=== PATIENT | female | born 1985 | race Hispanic/Latino ===

== ENCOUNTER → 2021-09-08 11:07 | Outpatient (CLI) | payer OTHER, SELFPAY ==
[2021-09-08 13:59] LABS: Add Manual Diff / Slide Review NO; Basophils Absolute Auto 0 /uL (0-100); Basophils Percent Auto 0.1 % (0-2); Eosinophils Absolute Auto 100 /uL (0-450); Eosinophils Percent Auto 0.6 % (2-4); Hematocrit 36.9 % (36-46); Hemoglobin 12.6 g/dL (12.0-16.0); Lymphocytes Absolute Auto 1500 /uL (1100-4500); Mean Corpuscular HGB Conc 34.1 % (30-36); Mean Corpuscular Hemoglobin 29.4 PG (26-34); Mean Corpuscular Volume 86.3 fL (80-100); Monocytes Absolute Auto 600 /uL (0-900); Monocytes Percent Auto 6.3 % (3-14); Neutrophils Absolute Auto 7000 /uL (1500-7000); Platelet Count 337 X10^3/uL (150-400); Red Blood Cell Count 4.27 X10^6/uL (4.0-5.2); Red Cell Distribution Width 12.7 % (11.6-14.8); White Blood Cell Count 9.1 X10^3/uL (4.5-11.0)
[2021-09-08 14:09] LABS: Appearance Urine UA CLEAR; Bilirubin Urine UA NEGATIVE (NEGATIVE); Color Urine UA YELLOW; Glucose Urine UA NEGATIVE (Negative); Ketones Urine UA NEGATIVE (NEGATIVE); Leukocyte Esterase Urine UA TRACE (NEGATIVE); Nitrite Urine UA NEGATIVE (Negative); Occult Blood Urine UA 2+ (Negative); Protein Urine UA NEGATIVE (Negative); Specific Gravity Urine UA <=1.005 (1.000-1.035); Urobilinogen Urine UA 0.2 E.U./dL (0.2)
[2021-09-08 14:14] LABS: Alanine Aminotransferase 12 IU/L (<35); Albumin 4.6 g/dL (3.5-5.0); Albumin Globulin Ratio 1.2 (1.0-2.8); Alkaline Phosphatase 53 U/L (38-126); Aspartate Aminotransferase 20 IU/L (14-36); BUN Creatinine Ratio 19.1 (6-22); Bilirubin Total 0.3 mg/dL (0.2-1.3); Blood Urea Nitrogen 9 mg/dL (7-17); Calcium 9.2 mg/dL (8.4-10.2); Carbon Dioxide 23 mmol/L (22-32); Chloride 102 mmol/L (98-107); Estimated Glomerular Filt Rate > 60.0 mL/min (>60); Globulin 3.8 g/dL (1.7-4.1); Glucose 104 mg/dL (70-100); HEMOLYSIS < 15 (0-50); Lactate Dehydrogenase 351 U/L (313-618); Potassium 3.8 mmol/L (3.4-5.1); Sodium 133 mmol/L (137-145); Total Protein 8.4 g/dL (6.3-8.2); Uric Acid 2.4 mg/dL (2.5-6.2)
[2021-09-08 14:42] LABS: Bacteria Urine Few (2-10); Culture Indicated Urine Specimen Cultured; RBC Urine 1-5/HPF (0-5/HPF); Squamous Epithelial Cell Urine 1-5 /HPF (0-5/HPF); WBC Urine 1-5/HPF (0-5/HPF)
[2021-09-08 15:29] LABS: Creatinine Urine Random 27.1 mg/dL; Protein (Total) Urine Random 9 mg/dL (0-12); Protein Creatinine Ratio Urine 0.33 GRAM/24H
[2021-09-08 15:55] LABS: Hepatitis B Surface Antigen NEGATIVE s/c (NEGATIVE); Rubella Antibody IgG 25.7 IU/mL (>15)
[2021-09-08 16:09] LABS: HIV 1 & 2 Ab/Ag 4th Gen Combo NEGATIVE (NEGATIVE); Hep C Virus Ab w/Reflex Quant NEGATIVE s/c (NEGATIVE)
[2021-09-09 04:08] LABS: RPR Screen Non Reactive (Non Reactive)
[2021-09-09 09:34] LABS: Varicella IgG Antibody <135 index (Immune >165)
== END ==
PROVIDERS: Referring Provider Obstetrics & Gynecology; Visit Provider Obstetrics & Gynecology
DX: Z34.00 Encounter for supervision of normal first pregnancy, unspecified trimester (principal)
CPT/HCPCS: 36415; 80053; 80055; 81003; 81015; 82570; 83615; 84156; 84550; 86787; 86803; 86850; 86900; 86901; 87086; 87389

== ENCOUNTER → 2021-09-25 10:18 | Outpatient (CLI) | payer OTHER, SELFPAY ==
[2021-09-25 10:34] LABS: Specimen Label Y
== END ==
PROVIDERS: Referring Provider Obstetrics & Gynecology; Visit Provider Obstetrics & Gynecology
DX: O09.521 Supervision of elderly multigravida, first trimester (principal); Z36.0 Encounter for antenatal screening for chromosomal anomalies
CPT/HCPCS: 36415

== ENCOUNTER → 2021-10-23 10:37 | Outpatient (CLI) | payer OTHER, SELFPAY ==
--- NOTE | 2021-10-23 10:39 | DI.US.S_ITS ---
PROCEDURE: US OB >= 14 WEEKS FETUS INDICATIONS: ANATOMY SCAN OUTSIDE/PRIOR DATING DATA: Last menstrual period (LMP): Not known LMP-based estimated date of delivery (MELODIE): Not applicable First dating scan (date and location): August 11, 2021 Estimated date of delivery (MELODIE) from first dating scan: March 08, 2022 The calculations are made using the ultrasound MELODIE of March 08, 2022 TECHNIQUE: Real-time scanning was performed of the fetus, with image documentation and biometric measurements. Endovaginal scanning: Performed COMPARISON: [facility], US, US OB <= 14 WEEKS FETUS, 08/11/2021, 14:53. FINDINGS: General: A single living intrauterine gestation is present. Presentation: Variable Placenta: Placental position is posterior, without previa. Amniotic fluid index: 18.9 cm, normal range is 5-24 cm. heart rate: 144 beats per minute. Maternal cervical canal: Closed and 3.7 cm long. Normal lower limit is 2.5 cm. biometrics: Biparietal diameter: 21 weeks 4 days Head circumference: 20 weeks 6 days Abdominal circumference: 21 weeks 0 days Femur length: 20 weeks 0 days Expected gestational age by initial ultrasound: 20 weeks 4 days Composite gestational age from present scan: 20 weeks 6 days Estimated weight and percentile: 366 grams; 48th percentile Anatomic survey: Neuro: Ventricles are non-dilated at less than 10 mm. Cisterna magna is normal at 3-11 mm. Cerebellum is normal in size and morphology. Nuchal skin fold: Normal at less than 6 mm between 14-21 weeks gestational age. Face: Nose and lips, facial profile are normal. Spine: No evidence for spina bifida. Heart: 4-chambered heart is present, with normal ventricular outflow tracts. Diaphragm: Diaphragm is intact. Stomach: Left-sided stomach is present. Kidneys: No hydronephrosis. Normal is less than 5 mm in 2nd trimester, less than 7 mm in 3rd trimester. Cord: 3-vessel cord has orthotopic insertion. Bladder: Normal in size. Extremities: All 4 extremities identified. IMPRESSION: 1. Single living intrauterine with appropriate interval growth. 2. Normal anatomic survey. Dictated by: Whitney Blanchard MD, PhD on 10/23/2021 at 13:24 Approved by: Whitney Blanchard MD, PhD on 10/23/2021 at 13:27
== END ==
LOC: US 10:39
PROVIDERS: Referring Provider Obstetrics & Gynecology; Visit Provider Obstetrics & Gynecology
DX: Z34.82 Encounter for supervision of other normal pregnancy, second trimester (principal); Z3A.20 20 weeks gestation of pregnancy
CPT/HCPCS: 76811

== ENCOUNTER → 2021-12-11 11:34 | Outpatient (CLI) | payer OTHER, SELFPAY ==
[2021-12-11 13:41] LABS: Hematocrit 29.5 % (36-46); Hemoglobin 10.5 g/dL (12.0-16.0)
[2021-12-11 14:00] LABS: GTT (PREG) 1 Hour PP 50gm Dose 138 mg/dL (76-139)
== END ==
PROVIDERS: Referring Provider Obstetrics & Gynecology; Visit Provider Obstetrics & Gynecology
DX: Z34.82 Encounter for supervision of other normal pregnancy, second trimester (principal); Z3A.26 26 weeks gestation of pregnancy
CPT/HCPCS: 36415; 82950; 85014; 85018

== ENCOUNTER → 2022-02-10 11:16 | Outpatient (CLI) | payer OTHER, SELFPAY ==
[2022-02-11 13:32] LABS: Strep Grp B PCR NEG for Grp B Strep
== END ==
PROVIDERS: Visit Provider Obstetrics & Gynecology
DX: Z34.83 Encounter for supervision of other normal pregnancy, third trimester (principal)
CPT/HCPCS: 87653

== ENCOUNTER 2022-02-16 07:26 | Inpatient (IN) | payer OTHER, SELFPAY ==
--- NOTE | 2022-02-16 | PATH_ITS ---
[facility] Accession Number: [id number] . 01 Material submitted: . body - PARATUBAL CYSTS . 01 Clinical history: . OBS OF LABOR . 01 Diagnosis: Paratubal Cysts, Excision: Benign paratubal cysts. MRV 02/18/2022 1036 Local . 01 Electronically signed: . Dannielle Oropeza MD, Pathologist NPI- [id number] . 01 Gross description: . Received in formalin labeled with the patient's name and paratubal cysts consist of two intact pedunculated cystic structures. The first measures 1.1 x 0.8 x 0.6 cm and the margin is inked blue. The second measures 1.3 x 0.7 x 0.5 and the margin is inked green. Both fragments are bisected to reveal thin smooth-walled cystic structures filled with cordoba serous fluid. The specimens are submitted entirely in cassette A1. ([id number]) /MRV 02/17/2022 1552 Local . 01 Pathologist provided ICD-10: N83.8 . 01 CPT . 526298 Specimen Comment: A courtesy copy of this report has been sent to [facility] Performed at: 01 [facility] [address] [place] [address] [address] [facility], [place], [place] [id number] MD Sascha Swann MD Phone: [phone]
--- NOTE | 2022-02-16 09:07 | P.HPOB_ITS ---
OB HPI Date/Time Date of admission: 02/16/22 Date Patient Seen: 02/16/22 Time Patient Seen: 08:05 History of Present Condition Chief complaint: obs of labor : 2 Para: 0 Estimated Date of Delivery: 03/08/22 Estimated Gestational Age (weeks): 37 Narrative: Yareli Sparrow is a 36 year old female female who presents at 37 weeks with SROM. Baby was breech presentation on US last week. She had declined scheduling a version and she desired to try some exercise at home to see if the baby would turn to vertex with exercises. She reports feeling some cramping on the with the hospital, resolved. Not feeling any contractions. No bleeding. Feeling good movement. has been uncomplicated. She is advanced maternal age. Cell free DNA showed a fetus low risk for aneuploidy is, she did not find out the gender. History of Present care: good care Dating criteria: LMP confirmed by 1st trimester US Ultrasounds: normal mid trimester US Medical complications: none Preadmission Labs Blood type: B (+) positive -: Antibody screen: negative, GBS status: negative, HBsAG: negative, HSV 1: negative, HSV 2: negative and RPR/VDLR: negative -: Chlamydia screen: not detected and Gonorrhea screen: not detected -: Rubella: immune and Varicella: not immune HCAB: negative PAP: Normal Cell-free DNA: low risk 1 hr GTT: 138 Prior (ies) History: Spontaneous Ab at 6 weeks Evaluation Evaluation Baseline heart rate: 140 Variability: Moderate (11-25) monitor accelerations: Present Monitor Decelerations: Absent Category of Tracing: Reactive Status: Category l Comments: Leakage of fluid seen her vagina, grossly ruptured membranes. Cervix not examined at this time since she is not having contractions. Bedside ultrasound reveals francisca breech presentation with vertex in the mid upper abdomen, spine anterior to patient's right. 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 water heater temp set < 120 deg: Yes (will check) working smoke detector in home: Yes fire extinguisher in home: Yes carbon monox detector in home: Yes firearms in home: Yes firearms unloaded and locked: Yes do you feel safe at home: Yes Smoking Status: Former smoker (quit 6 years) second hand exposure: No alcohol intake: former (stopped at ) substance use type: does not use during the past year weight has: remained stable well-balanced diet: daily or most days (gluten intolerant) daily servings fruits/ve-4 caffeine: Yes (200mg) Type(s) of exercise: walking frequency: 3-4 times per week Meds Home Medications and Allergies Home Medications Medication Instructions Recorded Confirmed Type prenat.vits,fabi,pxj-djgl-jdkqt 1 tab PO DAILY 07/31/21 02/10/22 History omeprazole 40 mg capsule,delayed 40 mg PO DAILY Heartburn #30 caps 12/11/21 02/10/22 Rx release ferrous sulfate 142 mg (45 mg 142 mg PO DAILY 01/13/22 02/10/22 History iron) tablet,extended release (Slow Fe) Allergies Allergy/AdvReac Type Severity Reaction Status Date / Time No Known Drug Allergies Allergy Unverified 02/10/22 10:31 OB Exam Narrative Exam Narrative: Vital signs Afebrile, BP 115/72, pulse 96 HENMT Head: normal to inspection and normocephalic Resp Effort & Inspection: normal respiratory effort Cardio Rate: regular rate Extremities Lower extremity: Yes normal to inspection Presentation: francisca breech Estimated Weight (lbs): 6 Amniotic Fluid: clear Objective Labs Result Diagrams: 02/16/22 09:58 Assessment and Plan Assessment and Plan Assessment and Plan narrative: 36 yo female @ 37 weeks 1 day EGA, SROM, francisca breech presentation. GBS negative She inquired regarding doing possible external cephalic version, though she would still be hesitant due to hearing it is uncomfortable. On ultrasound MADHAV 10. I discussed typically less success with attempting ECV with ruptured membranes or labor. She is not currently anabell. MADHAV is 10, discussed measuring fluid volume where reasonable to try, however measuring some in her pockets, adding up to 10 with 1 better pocket, I do not see a lot of fluid in general around the baby's body. Discussed certainly could attempt but feels less likely to be successful. Discussed possibility of urgent Csection with an attempted ECV, rare but occasionally urgent needed due to a bradycardia. Could attempt the ECV after spinal anesthesia is placed, since potentially increase risk for urgent due to lower amniotic fluid, and then she would having anesthesia in place rather than need to undergo general anesthesia for an urgent . I did discuss after a , different in attempting a labor in the future with an incision on the uterus, some increased risk with laboring with risk of uterine rupture.. Discussed with a future it would be a decision whether have a repeat versus possible option of attempting labor depending on the uterine incision at this C- section. I discussed this so they can have this information regarding deciding whether she did want to attempt an external cephalic version. I discussed if the version failed or if they opted not to try a version, due to persistent joshua k breech presentation, safer to deliver a breech baby by . I left patient and her alone to discuss and they decided on proceeding with C- section for delivery, declies attempted ECV. She was admitted. Admit labs ordered including COVID screen. I reviewed primary section, discussed small risk of bleeding, infection, injury to internal organs including injury to the urinary system including bladder and ureters, bowel, and risk of injury to the baby. Verbal and written consent obtained. She was already added onto the OR schedule and will proceed when her COVID screen and labs returns.
[2022-02-16] MEDS: LACTATED RINGERS 1,000 ML 100 ML IV ×2 (09:45→13:30)
[2022-02-16 10:01] LABS: Add Manual Diff / Slide Review NO; Basophils Absolute Auto 0 /uL (0-100); Basophils Percent Auto 0.2 % (0-2); Eosinophils Absolute Auto 0 /uL (0-450); Eosinophils Percent Auto 0.2 % (2-4); Hematocrit 33.4 % (36-46); Hemoglobin 11.5 g/dL (12.0-16.0); Lymphocytes Absolute Auto 1700 /uL (1100-4500); Lymphocytes Percent Auto 12.1 % (25-40); Mean Corpuscular HGB Conc 34.5 % (30-36); Mean Corpuscular Hemoglobin 29.9 PG (26-34); Mean Corpuscular Volume 86.8 fL (80-100); Monocytes Absolute Auto 900 /uL (0-900); Monocytes Percent Auto 6.4 % (3-14); Neutrophils Absolute Auto 11100 /uL (1500-7000); Neutrophils Percent Auto 81.1 % (50-75); Platelet Count 275 X10^3/uL (150-400); Red Blood Cell Count 3.84 X10^6/uL (4.0-5.2); Red Cell Distribution Width 14.1 % (11.6-14.8); White Blood Cell Count 13.7 X10^3/uL (4.5-11.0)
[2022-02-16 10:14] VITALS: BP 108/59
[2022-02-16 10:31] LABS: COVID19 -Nasal RAPID Negative (Negative)
--- NOTE | 2022-02-16 10:55 | P.OP_ITS ---
Operative Date/Time/Diagnoses Date of procedure: 02/16/22 Time of procedure: 10:00 Pre-op diagnosis: [id number] EGA , francisca breech presentation, spontaneous rupture membranes Post-op diagnosis: same Procedure & Clinicians Procedure: Primary lower transverse section. Removal of bilateral small paratubal cysts Same procedure as scheduled: Yes Indications: 36 yo at 37 weeks with SROM with known breech presentation. On discovering breech presentation last week, she declined being scheduled at that time for external cephalic version, was deciding and desired to attempt some different exercises at home to see if the baby would turn. This morning at 0400 she had spontaneous rupture membranes And the baby is in the persistent breech presentation. She inquired regarding external cephalic version. I discussed much lower success rate with spontaneous rupture membranes. On MADHAV today, it was 10. Discussed however subjectively fluid looked low around the babies body. Discussed that I could give an attempt at an ECV, discussed option could be after the spinal anesthesia, since she did not want to risk possibility of urgent under general anesthesia. After consideration, she declined attempt at an ECV and desired to proceed with the primary section at this time for breech presentation. Surgeon: Marina Hammond Counter Professional: Jenelle Hayes Anesthesia Type: Spinal Operative Notes Findings: Baby was in the francisca breech presentation. A baby boy was delivered, weight and Apgars were pending. The baby did become vigorous after few seconds on the maternal abdomen, with wiping the baby. Normal uterus and bilateral ovaries. Fallopian tubes were both normal in appearance with bilateral small paratubal cysts. Closure Type: primary Specimen(s): other ( Bilateral paratubal cysts sent as one specimen; cord blood to lab) Applied: catheter (Whitt) Estimated Blood Loss (mL): 500 Blood products transfused: none Procedure in detail: IV fluids 1800 mL Urine output: 350 mL Description of procedure: She was transferred from the center to the operating room. After an adequate level of spinal anesthesia was obtained, she was placed in the supine position, Whitt catheter was placed and she was prepped and draped in routine sterile fashion. A Pfannenstiel skin incision was made in the lower abdomen and carried down to the level of the fascia. The fascia was incised in the midline and was bluntly extended transversely. The superior and inferior edges of the fascia were elevated and dissected off the rectus muscles with sharp and blunt dissection. The muscles were bluntly split in the midline. The parietal peritoneum was elevated, incised and extended bluntly. The bladder blade was placed. The visceral peritoneum was elevated off the lower uterus, incised and the bladder flap was bluntly created. The bladder blade retractor was placed. A transverse incision was made in the lower uterus and the incision was extended transversely with blunt dissection. Clear fluid was noted. The baby's buttocks was elevated to the uterine incision and each leg was sequentially delivered by flexing the leg at the hip and delivering through the incision. The baby was then turned spine anterior and gradually delivered to the level the chest. The baby was then turned left shoulder anterior and the left arm was delivered with cat's paw maneuver, with gentle pressure on the humerus. The baby was then turned right arm anterior and with cat's paw maneuver, the right arm was delivered without difficulty as well. The baby was then placed back to spine anterior and the body was elevated. The head was then delivered by placing a finger in the mouth and gently flexing the head through the uterine incision and a baby boy was fully delivered. The was not immediately vigorous, but after wiping the baby gently with a towel, within a few seconds he began to cry spontaneously. The drape was dropped to a clear drape and the baby was shown to the parents. After 1 minute the cord was clamped and cut and the baby was handed off to the baby nurse and respiratory therapy who was present for delivery. Cord blood was obtained a specimen. The placenta was expressed with gentle cord traction and uterine massage. With delivery of the placenta, the uterus was noted to be inverted, an uterine inversion had occurred. The internal uterine fundus was immediately pushed back in position, the uterine inversion corrected. With correction, the placenta was noted to be detached with trailing membranes. Using a ring forceps the membranes were slowly removed. The placenta appeared intact and was handed off as specimen. The uterus was atonic and with massage and IV Pitocin, it firmed up. The uterus was swept clean of adherent clots and membranes. The uterus was already through the abdominal incision after the inversion and was kept out at this time for the uterine closure. The uterine incision was closed in 2 layers with 0 Vicryl, the 1st layer being in running locking continuous fashion and the 2nd layer being in a vertical imbricating type fashion. Hemostasis was noted. The tubes and ovaries were inspected and noted to be normal. There were bilateral small loosely attached paratubal cysts which were removed and sent for pathology. The uterus was placed back into the maternal abdomen. The paracolic gutters were inspected and were free any clot, blood or fluid. The anterior cul-de-sac was inspected and some clot was removed. The uterine incision was re- inspected and good hemostasis was noted. The pelvis was irrigated. Repeat inspection showed continued hemostasis. The abdomen was closed. The parietal peritoneum was closed with a running continuous suture of 2-0 Vicryl. The fascia was closed with 2 sutures of running continuous 0 Vicryl meeting in the midline. The subcutaneous tissue was irrigated. The subcutaneous tissue was reapproximated by reapproximating Otis's fascia with 2-0 Vicryl.The skin was closed with a subcuticular suture of 4 0 Monocryl. Steri-Strips and sterile Aquacel dressing was placed. She tolerated the procedure well and went to the recovery room in stable condition. Complications: none Post-operative Condition: stable Disposition: PACU Plan for aftercare: Transferred to the birthing center for continued postoperative, care.
[2022-02-16] MEDS: CEFAZOLIN 2 GM/100 ML PREMIX 100 ML IV (10:58)
[2022-02-16] MEDS: ACETAMINOPHEN IV 1,000 MG/100 ML VIAL 400 MG IV (11:17)
--- NOTE | 2022-02-16 11:19 | SUR.OPER ---
Supine on padded OR bed, head on pillow, arms secured on padded arm boards at <90 degrees abduction, legs uncrossed, safety belt at thigh, tape over blanket over lower legs.
--- NOTE | 2022-02-16 11:38 | SUR.OPER ---
LIVE BABY BOY TOB 1123. BABY, CORD BLOOD AND PLACENTA TO OB RN.
[2022-02-16 12:22] VITALS: BP 110/64; PULSE 80; RESP 16; TEMP 36.6; O2SAT 100
[2022-02-16 12:27] VITALS: BP 116/72; PULSE 73; RESP 16; O2SAT 98
[2022-02-16 12:50] VITALS: BP 118/77; PULSE 68; RESP 16; TEMP 36.6; O2SAT 100
[2022-02-16 16:55] VITALS: TEMP 36.6
[2022-02-16] MEDS: ACETAMINOPHEN 325 MG TABLET 650 MG PO ×2 (16:55→23:05)
[2022-02-16 18:35] VITALS: TEMP 36.2
[2022-02-16] MEDS: KETOROLAC 30 MG/ML VIAL IV (18:35)
[2022-02-17] MEDS: KETOROLAC 30 MG/ML VIAL IV ×3 (00:21→12:41)
[2022-02-17] MEDS: ACETAMINOPHEN 325 MG TABLET 650 MG PO ×3 (05:15→23:04)
[2022-02-17 06:13] LABS: Add Manual Diff / Slide Review NO; Basophils Absolute Auto 0 /uL (0-100); Basophils Percent Auto 0.3 % (0-2); Eosinophils Absolute Auto 0 /uL (0-450); Eosinophils Percent Auto 0.4 % (2-4); Hematocrit 27.4 % (36-46); Hemoglobin 9.6 g/dL (12.0-16.0); Lymphocytes Absolute Auto 1500 /uL (1100-4500); Lymphocytes Percent Auto 11.7 % (25-40); Mean Corpuscular HGB Conc 35.1 % (30-36); Mean Corpuscular Hemoglobin 30.4 PG (26-34); Mean Corpuscular Volume 86.6 fL (80-100); Monocytes Absolute Auto 1000 /uL (0-900); Monocytes Percent Auto 7.3 % (3-14); Neutrophils Absolute Auto 10600 /uL (1500-7000); Neutrophils Percent Auto 80.3 % (50-75); Platelet Count 256 X10^3/uL (150-400); Red Blood Cell Count 3.16 X10^6/uL (4.0-5.2); White Blood Cell Count 13.1 X10^3/uL (4.5-11.0)
--- NOTE | 2022-02-17 07:56 | P.PNOB_ITS ---
Subjective - OB Subjective Patient comments: pain well controlled, tolerating diet, flatus present (and +small BM) and other ( Voided without difficulty after Whitt removed. Lochia is light.) [place] baby status: doing well and other [place] feeding status: other (baby not latching well, working on , giving pumped milk) Date Patient Seen: 02/17/22 Time Patient Seen: 12:30 Exam Vital Signs (past 8 hours): Oxygen Delivery Method Room Air Afebrile, BP 108/63, pulse 86, respiratory rate 17 Narrative Exam Narrative: General: Well-appearing female in no acute distress Abdomen: Soft, nondistended, expected discomfort near dressing, otherwise abdomen nontender dressing is dry, intact. Fundus firm, U -1, nontender Extremities: Trace pedal edema Objective Labs Result Diagrams: 02/17/22 06:01 Labs: Laboratory Results - last 24 hr 02/16/22 02/16/22 02/16/22 08:39 09:58 09:58 WBC 13.7 H RBC 3.84 L Hgb 11.5 L Hct 33.4 L MCV 86.8 MCH 29.9 MCHC 34.5 RDW 14.1 Plt Count 275 Neut % (Auto) 81.1 H Lymph % (Auto) 12.1 L [place] % (Auto) 6.4 Eos % (Auto) 0.2 L Baso % (Auto) 0.2 Neut # (Auto) 57103 H Lymph # (Auto) 1700 [place] # (Auto) 900 Eos # (Auto) 0 Baso # (Auto) 0 SARS-CoV-2 (PCR) Negative Blood Type B Positive Antibody Screen Negative 02/17/22 06:01 WBC 13.1 H RBC 3.16 L Hgb 9.6 L Hct 27.4 L MCV 86.6 MCH 30.4 MCHC 35.1 RDW 14.0 Plt Count 256 Neut % (Auto) 80.3 H Lymph % (Auto) 11.7 L [place] % (Auto) 7.3 Eos % (Auto) 0.4 L Baso % (Auto) 0.3 Neut # (Auto) 53195 H Lymph # (Auto) 1500 [place] # (Auto) 1000 H Eos # (Auto) 0 Baso # (Auto) 0 SARS-CoV-2 (PCR) Blood Type Antibody Screen Assessment & Plan Plan day: 1 plan OB: routine postop care Comments: Doing well. Working further on today. Time Spent With Patient Time: Total time spent is greater than 50% in coordination of care (as documented) at patient's floor/unit and/or counseling patient: Time with patient: less than 15 minutes
[2022-02-17] MEDS: DOCUSATE 100 MG CAPSULE 200 MG PO (09:00)
[2022-02-17 12:41] VITALS: TEMP 36.6
[2022-02-17] MEDS: IBUPROFEN 600 MG TABLET PO (18:30)
[2022-02-18] MEDS: IBUPROFEN 600 MG TABLET PO ×2 (01:32→08:16)
[2022-02-18] MEDS: ACETAMINOPHEN 325 MG TABLET 650 MG PO (06:02)
[2022-02-18] MEDS: DOCUSATE 100 MG CAPSULE 200 MG PO (08:16)
--- NOTE | 2022-02-18 10:01 | PM.DS.1 ---
History of Present Illness History of Present Illness Chief complaint: Discharge Providers Provider Date of admission: 02/16/22 07:26 Discharge Date: 02/18/22 Primary care physician: Danay Hawthorne MD Consults: 02/16/22 15:45 Consult to Algebra Tutor Routine Comment: Discharge provider: Marina Hammond MD Summary Hospital Course Discharge Diagnosis: 37 week , Spontaneous rupture membranes, delivered Breech presentation Status post primary section Hospital Course: 36 year old female female who presents at 37 weeks with SROM. Baby was known breech presentation. ultrasound confirmed persistent breech presentation. She underwent primary lower section for delivery without difficulty and no maternal complications. See operative report. She had normal course, meeting normal postoperative parameters. The baby was not latching well, not well. On postoperative day 1 in the evening, the baby was noted to have an increased respiratory weight. On evaluation with checks x-ray, the baby was noted to have bilateral pneumothoraces. The baby was stabilized and [facility]. The father the baby went with the baby. Reportedly the baby is stable, after placing chest tubes. The pt is coping well. She is pumping breast milk. She desires discharge today, will stay in [place] until the baby is discharged. Status at Discharge Cognitive/behavioral status at discharge: oriented Functional status at discharge: independent ambulation Overall status at discharge: patient is back to baseline Time Spent with Patient Time spent: Less than 30 minutes Exam Vital Signs (past 8 hours): Oxygen Delivery Method Room Air Narrative Exam Narrative: General: Well-appearing female in no acute distress Abdomen: Soft, nontender, nondistended. Dressing is intact and dry. Fundus firm, nontender Extremities: trace pedal edema Objective Labs Result Diagrams: 02/17/22 06:01 [facility] Medical History (Updated 12/24/21 @ 13:38 by Marina Hammond MD) Gluten intolerance Seasonal allergies Surgical History (Updated 08/18/21 @ 22:34 by Yolanda Castillo) H/O dilation and curettage (~2011) H/O wisdom tooth extraction Family History (Updated 08/18/21 @ 22:34 by Yolanda Castillo) Grandmother Diabetes mellitus Mother Alopecia Father Cancer Social History marital status: unmarried,living together (13 years) number of children: 0 household members: significant other lives independently: Yes housing: house pets and animals: Yes (Cats ) education level: high school 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 water heater temp set < 120 deg: Yes (will check) working smoke detector in home: Yes fire extinguisher in home: Yes carbon monox detector in home: Yes firearms in home: Yes firearms unloaded and locked: Yes do you feel safe at home: Yes Smoking Status: Never smoker second hand exposure: No alcohol intake: former (stopped at ) substance use type: does not use during the past year weight has: remained stable well-balanced diet: daily or most days (gluten intolerant) daily servings fruits/ve-4 caffeine: Yes (200mg) Type(s) of exercise: walking frequency: 3-4 times per week Discharge Assessment & Plan Assessment and Plan Assessment: POD 2 s/p primary section for breech. Plan of Treatment: discharge home. Patient is going to travel to [place] to see the baby and stay there until baby is discharged. She will likely have an incision check there and dressing removal versus returning here in 1-2 weeks for Aquacel removal. Discharge Plan Discharge Plan Patient Disposition: Home Provider Discharge Comment: status post primary C section for breech presentation, spontaneous ruptured membranes Discharge orders & Medications Prescriptions: New acetaminophen 325 mg Tablet 650 mg PO Q6H PRN (Reason: Fever/Mild Pain (1-3)) Qty: 7 0RF docusate sodium 100 mg Capsule 200 mg PO DAILY Qty: 14 0RF ibuprofen 600 mg Tablet 600 mg PO Q6HR PRN (Reason: pain, moderate) Qty: 60 0RF oxycodone 5 mg Tablet 5 mg PO Q4H PRN (Reason: Pain, Moderate (4-6)) Qty: 10 0RF Purelan Cream 1 applic topical PRN PRN (Reason: Post Delivery) Qty: 7 0RF Continued omeprazole 40 mg capsule,delayed release(DR/EC) 40 mg PO DAILY Qty: 30 3RF prenat.vits,fabi,kwe-cdut-fhwxl Tablet 1 tab PO DAILY Slow Fe 142 mg (45 mg iron) tablet extended release 142 mg PO DAILY Follow up/Referrals: Marina Hammond MD [Physician] - 1 Week (Please follow up with Dr. Hammond on at 11:15AM for your aquacell dressing removal. Please call the clinic with any questions, comments or concerns. ) Discharge Health Status Multidrug resistant organism: No MDRO Diet/Activity/Treatments Diet: Regular Activity: no heavy lifting. Nothing in the vagina for 6 weeks, no tampons and no intercourse Skin/Wound/Dressing Care Report to your healthcare provider any signs of infection, such as:: chills, fever, increased pain, unusual drainage and unusual redness Visit Report/Discharge Packet Instructions: DI for Stand Alone Forms: Discharge: Care Discharge Data Primary Care Provider: Danay Hawthorne
[2022-02-18 10:06] VITALS: BP 110/66; PULSE 77; RESP 16; TEMP 36.4
== END 2022-02-18 12:20 | disposition home or self-care (01) | DRG 785 ==
PROVIDERS: Admitting Provider Obstetrics & Gynecology; PCP Family Medicine; Referring Provider Obstetrics & Gynecology; Visit Provider Obstetrics & Gynecology
PROC: 10D00Z1 Extraction of Products of Conception, Low, Open Approach (ICD-10-PCS; CPT 59514; principal; 2022-02-16 09:45)
DX: O32.1XX0 Maternal care for breech presentation, not applicable or unspecified (principal); Z37.0 Single live birth; Z3A.37 37 weeks gestation of pregnancy; N83.8 Other noninflammatory disorders of ovary, fallopian tube and broad ligament
CPT/HCPCS: 36415; 59050; 59510; 59514; 59515; 85025; 86850; 86900; 86901; 87635; C9803; G0379; J0131; J0690; J1885; J2274; J2405; J2590